=== PATIENT | female | born 1990 | race Caucasian/White ===

== ENCOUNTER 2020-05-09 10:10 | Inpatient (IN) ==
--- NOTE | 2020-05-11 14:46 | History and Physical Report ---
DATE OF ADMISSION: 05/12/2020 ADMIT DIAGNOSES: 1. Intrauterine at 40 and 0/7 weeks. 2. Breech presentation. HISTORY OF PRESENT ILLNESS: Ayse is a 30-year-old white female, 1, para 0 who on her visit at 36 weeks, was found to have a breech presentation. Options of external cephalic version and planned were discussed and she chose planned . She was originally scheduled for the , but then moved to the due to a situation with work and leave for her spouse. She notes no labor symptoms. The baby is active. No bleeding or leaking fluid. The has otherwise been uncomplicated. The father of the baby does have congenital valve disease, but this baby had a normal echo. ALLERGIES: CAT DANDER, but no known drug allergies. MEDICATIONS: vitamins and cetirizine. PAST MEDICAL HISTORY: The patient has a history of remote heart murmur and a history of asthma. SOCIAL HISTORY: She has no pertinent social history. FAMILY HISTORY: Significant for father for stroke, congenital heart disease, diabetes, hypertension, thyroid disease. Aunt with breast cancer. Paternal grandfather with diabetes, hypertension. Sister with thyroid disease and neurofibromatosis. Mother with thyroid disease. Denies any breast, uterine or ovarian cancer. PAST OBSTETRICAL AND GYNECOLOGICAL HISTORY: The patient has a history of breast lump diagnosed in 2016 with no action taken. 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 The patient denies history of sexually transmitted illnesses. FAMILY HISTORY AND GENETIC HISTORY: As noted above. PHYSICAL EXAMINATION: GENERAL: This is a well-developed, well-nourished white female in no acute distress. VITAL SIGNS: Blood pressure 120/76, weight 212.3 pounds. NECK: Supple. ABDOMEN: Soft, , nontender. EXTREMITIES: Show trace edema but are otherwise negative. LABORATORY DATA: Blood type A positive, antibodies negative, rubella immune, RPR nonreactive, hepatitis B negative, HIV negative. GTT x2 negative, chlamydia and gonorrhea negative. Declined genetic screening. Declined CF and SMA screening. ASSESSMENT: Ayse is a 30-year-old white female, 1, para 0 with a persistent breech presentation. She has declined external cephalic version and is now planned for a primary section on October 15. The risks of the procedure were discussed with the patient including the risks of anesthesia, bleeding requiring transfusion, infection, poor wound healing, damage to surrounding structures including bowel, bladder, vessels, nerves and ureters with need for further surgery, hospitalization or intervention. The other risks of surgery including the risk of heart attack, blood clot, stroke and were discussed with the patient. She expresses understanding. Questions were asked and answered. Consent was reviewed and signed and surgery is planned for the . She had a negative COVID test on 05/05/2020 and her GBS is negative.
[2020-05-12] MEDS ORDERED: CITRIC ACID/SODIUM CITRATE 15 ML UDC PO SCH (06:00)
[2020-05-12] MEDS ORDERED: ceFAZolin 2,000 MG in SYRINGE 0 ML IV SCH (06:00)
[2020-05-12] MEDS ORDERED: LACTATED RINGER'S 1,000 ML IV SCH ×2 (06:00→10:28)
[2020-05-12 06:14] LABS: Basophils # (auto) 0.02 K/uL (0-0.2); Basophils % (auto) 0.2 %; Eosinophils # (auto) 0.37 K/uL (0-0.5); Eosinophils % (auto) 2.8 %; Hematocrit (blood only) 37.7 % (37-47); Hemoglobin 12.2 g/dL (12.0-16.0); Immature Granulocytes % (auto) 0.8 %; Lymphocytes # (auto) 2.32 K/uL (1.2-3.4); Lymphocytes % (auto) 17.7 %; Mean Corpuscular Hemoglobin 27.7 pg (25-34); Mean Corpuscular Volume 85.7 fL (80-100); Mean Platelet Volume 11.5 fL (7.4-10.4); Monocytes # (auto) 0.82 K/uL (0.11-0.59); Monocytes % (auto) 6.2 %; Neutrophils # (auto) 9.51 K/uL (1.4-6.5); Neutrophils % (auto) 72.3 %; Platelet Count 210 K/uL (130-400); RDW Coefficient of Variation 13.9 % (11.5-14.5); RDW Standard Deviation 42.8 fL (36.4-46.3); White Blood Count 13.14 K/uL (4.8-10.8)
[2020-05-12 06:24] LABS: Mean Corpuscular Hgb Conc 32.4 g/dL (32-36)
[2020-05-12 06:38] LABS: Appearance Urine Cloudy (Clear); Bacteria Urine Automated 1+ (Negative); Bilirubin Urine Negative (Negative); Blood Urine Negative (Negative); Cast Urine Automated 0 /lpf (0-5); Color Urine Yellow; Epithelial Cell Urine Auto >30 /lpf (0-5); Glucose Urine UA Negative (Negative); Ketones Urine Negative (Negative); Leukocyte Esterase Urine 2+ (Negative); Nitrite Urine Negative (Negative); Protein Urine Negative (Negative); RBC Urine Automated 0-4 /hpf (0-4); Specific Gravity Urine 1.016 (1.000-1.030); Urobilinogen Urine Negative (Negative); pH Urine 6.5 (4.5-7.5)
--- NOTE | 2020-05-12 07:17 | History & Physical Bridge Note ---
Date of Service May 12, 2020 History & Physical Bridge Note I have examined the patient, reviewed the History & Physical and in the interval since the performance of the History & Physical I have noted the following changes of clinical significance: no changes noted
--- NOTE | 2020-05-12 07:25 | Anesthesiology Consultation ---
Date of Service May 12, 2020 Assessment & Plan Chart Review Chart Review: Acceptable Risk for Surgery Consults Requested none History Surgery Operation Date: 05/12/20 07:30 Proposed Procedures p Section in LD - Ailyn Waters MD, FACOG Height/Weight Height: 5 ft 10 in Weight: 95.254 kg Allergies Allergy/AdvReac Type Severity Reaction Status Date / Time No Known Drug Allergies Allergy Mild None Verified 05/12/20 06:03 cat dander Allergy Unknown SNEEZING, Verified 05/12/20 06:03 WATERY EYES Medications Home Medications Medication Instructions Recorded Confirmed Last Taken prenat.vits,сергей,aqs-[id number]-zfmkp 1 tab PO DAILY 10/05/19 05/11/20 Unknown Active Medications Generic Name Dose Route Start Last Admin Trade Name Freq PRN Reason Stop Dose Admin Lactated Ringer's 1,000 mls @ 999 mls/hr 05/12/20 06:00 05/12/20 05:58 Lr IV 06/11/20 05:59 999 mls/hr .Q1H1M SHIRA Administration NPO Date Last Intake of Fluids: 05/11/20 Time Last Intake of Fluids: 22:30 Date Last Intake of Solids: 05/11/20 Time Last Intake of Solids: 21:00 Past Medical History Medical History Breech presentation REASON FOR UPCOMING C/S Heart murmur PT DENIES History of asthma CHILD Past Family History Family History Father Stroke Congenital heart disease Diabetes Hypertension Thyroid disease Aunt Breast cancer Grandfather (Paternal) Diabetes Hypertension Sister Thyroid disease Neurofibromatosis Mother Thyroid disease Other Gallbladder disease Heart disease Past Surgical History Surgical History No pertinent past surgical history Social History Smoking Status: Never smoker Do You Dip or Chew Tobacco: No Hx Alcohol Use: No Hx Substance Use: No substance use type: does not use Physical Exam Vital Signs Last Vital Signs Temp 36.6 C 05/12/20 07:04 Pulse 73 05/12/20 06:57 Resp 20 05/12/20 07:04 BP 133/78 05/12/20 06:57 Testing Laboratory Results 05/12/20 06:00 Urine Color Yellow 05/12/20 05:49 Urine Appearance Cloudy (Clear) A 05/12/20 05:49 Urine pH 6.5 (4.5-7.5) 05/12/20 05:49 Ur Specific [place] 1.016 (1.000-1.030) 05/12/20 05:49 Urine Protein Negative (Negative) 05/12/20 05:49 Urine Glucose (UA) Negative (Negative) 05/12/20 05:49 Urine Ketones Negative (Negative) 05/12/20 05:49 Urine Nitrite Negative (Negative) 05/12/20 05:49 Ur Leukocyte Esterase 2+ (Negative) H 05/12/20 05:49 Urine WBC (Auto) 10-30 /hpf (0-5) H 05/12/20 05:49 Urine RBC (Auto) 0-4 /hpf (0-4) 05/12/20 05:49 U Hyaline Cast (Auto) 0 /lpf (0-5) 05/12/20 05:49 U Epithel Cells (Auto) >30 /lpf (0-5) H 05/12/20 05:49 Urine Bacteria (Auto) 1+ (Negative) H 05/12/20 05:49 Blood Type A Positive 05/12/20 06:00 Antibody Screen NEGATIVE 05/12/20 06:00
[2020-05-12] MEDS ORDERED: MoRPHine SULFATE PF 1 MG/ML 10 ML AMP/VIAL ONE (07:40)
[2020-05-12] MEDS ORDERED: ePHEDrine sulfate 50 MG/ML AMP ONE (07:55)
[2020-05-12] MEDS ORDERED: OXYTOCIN 10 UNITS/ML VIAL ONE (07:56)
[2020-05-12] MEDS ORDERED: diphenhydrAMINE 50 MG/ML VIAL IV PRN (08:24)
[2020-05-12] MEDS ORDERED: ONDANSETRON INJ 2 MG/ML 2 ML VIAL IV PRN (08:24)
[2020-05-12] MEDS ORDERED: HYDROmorphone INJ 0.5 MG/0.5 ML SYR IV PRN (08:24)
[2020-05-12] MEDS ORDERED: MoRPHine SULFATE PF 1 MG/ML 10 ML AMP/VIAL INT SPINAL ONE (08:24)
[2020-05-12] MEDS ORDERED: NALOXONE HCL 1 MG in SODIUM CHLORIDE 0.9% 1000ML 1,000 ML IV PRN (08:24)
[2020-05-12] MEDS ORDERED: PROMETHAZINE HCL 25 MG in SODIUM CHLORIDE 0.9% 50 ML IV PRN (08:24)
[2020-05-12] MEDS ORDERED: NALOXONE HCL 0.08 MG in SYRINGE 1.8 ML IV PRN (08:24)
[2020-05-12] MEDS ORDERED: LACTATED RINGER'S 500 ML IV PRN (08:24)
[2020-05-12] MEDS ORDERED: MoRPHine SULFATE 2 MG/ML CARP IV PRN (08:24)
[2020-05-12] MEDS ORDERED: MEPERIDINE HCL 25 MG/ML CARP/VIAL IV PRN (08:24)
[2020-05-12] MEDS ORDERED: ePHEDrine sulfate 50 MG/ML AMP IV PRN (08:24)
[2020-05-12] MEDS ORDERED: METOCLOPRAMIDE HCL 10 MG in SODIUM CHLORIDE 0.9% 50 ML IV PRN (08:24)
[2020-05-12] MEDS ORDERED: NALOXONE HCL 0.4 MG/1 ML VIAL/CARP IV PRN (08:24)
[2020-05-12] MEDS ORDERED: NO NARCOTICS OR SEDATIVES SCH (08:30)
[2020-05-12] MEDS ORDERED: DC INTRASPINAL MORPHINE SCH (08:30)
[2020-05-12] MEDS ORDERED: SODIUM CHLORIDE 0.9% 1000ML 1,000 ML IV SCH (08:30)
--- NOTE | 2020-05-12 08:42 | Operative Report ---
Post Operative Report Pre & Post Diagnosis Operation Date: 05/12/20 07:30 <No data on this case meets the specified criteria> Pre-op diagnosis-- at 39 6/7 breech presentation Post-op dx--same I identified the patient and participated in the time-out.: Yes Procedure Operation Date: 05/12/20 07:30 <No data on this case meets the specified criteria> Primary low transverse Cesearean section Surgeon Ailyn Waters MD, FACOG Developer Programmer Analyst Dr. Baeza Estimated Blood Loss 600 Findings Consistent with Post-Op Diagnosis viable female in dorcas breeck presentation. nlutx/tubes/ovs bilaterally Fluids 600cc Specimens cord gases Drains schmidt Anesthesia Type MAC Spinal Regional Complications none Disposition Accompanied Patient To Recovery: Yes Disposition: L&D Indications Patient is a with iup at 39 6/7. Breech presentation. Declines ECV. Description of Procedure The patient was taken to the operating room where she was identified verbally and by bracelet. She was seated on the operating table where a spinal anesthetic was placed by anesthesia. she was then placed in the supine position with a leftward tilt. A Schmidt catheter was placed sterilely. the patient was prepped and draped in a normal standard fashion. the anesthetic was tested and found to be adequate. A time-out was held, identifying correct patient, procedure, positioning and preoperative antibiotics. There were no concerns. A Pfannenstiel skin incision was made with a knife and taken down to the underlying layer of fascia with the knife and Bovie electrocautery. Bleeding was attended to with Bovie cautery. The fascia was incised in the midline with the knife and taken out laterally with scissors. the superior edge of the fascial incision was grasped, elevated and the underlying layer of rectus muscle was taken off bluntly and with scissors. In a similar fashion, the inferior edge of the fascial incision was grasped, elevated and the underlying layer of rectus muscle was taken off bluntly and with scissors. The muscles were bluntly in the midline. The peritoneum was entered bluntly. The incision was then stretched. The bladder blade was placed. The vesicouterine peritoneum was identified, entered with scissors and taken out laterally with scissors. The bladder flap was created digitally A hysterotomy incision was scored with a knife and the incision was stretched cephalad and caudad with the sucker machine operator's fingers. The operators hand was placed into the incision and the bottom was delivered atraumatically. Using fundal pressure, the fetus was delivered to the shoulders. the legs were reduced. the left and right arms were then swept across the body. The head was then delivered. No nuchal cord. The nose and mouth were bulb suctioned. The cord was clamped and cut and the was then handed off to the awaiting meal cooker for drying and attention. Cord blood and segment were obtained. The placenta was manually extracted. the uterus was exteriorized and cleared of all clot and debris with moistened laparotomy sponges. The hysterotomy incision was repaired in two layers, the first in a running locked layer, the second in an imbricating layer. Hemostasis was noted to be good. Posterior cul-de-sac was irrigated and cleared of all clot and debris. The hysterotomy incision was again inspected and found to be hemostatic. the uterus was reinteriorized. Hysterotomy incision was again inspected and found to be hemostatic. Rectus muscles were reapproximated with several interrupted stitches of 0 Vicryl. The fascia was then reapproximated with 0 Vicryl starting at the edges and meeting in the midline. The subcuticular tissues were copiously irrigated and bleeding was attended to with cautery. The skin was then closed with 4-0 Vicryl in a subcuticular fashion. All sponge , lap and needle counts were correct x 2. The patient was then taken to the recovery room in stable condition. I attest to the content of the Intraoperative Record and any orders documented therein. Any exceptions are noted below. OB Procedure charges OB Charges 59423 C/S
[2020-05-12 09:08] LABS: Base Excess Cord Arterial Bld -1.4 mEq/L (-9-1.8); CO2 Cord Arterial Blood 47 mmHg (39.1-73.5); HCO3 Cord Arterial Blood 25 mmol/L (19.7-28.5); PO2 Cord Arterial Blood 29 mmHg (4.1-31.7); pH Cord Arterial Blood 7.34 (7.1-7.38)
[2020-05-12 09:12] LABS: Base Excess Cord Venous Blood -1.2 mEq/L (-7.7-1.9); Cord Venous Blood HCO3 25 mmol/L (18.4-26.8); Cord Venous Blood PCO2 45 mmHg (30.4-57.2); Cord Venous Blood PO2 30 mmHg (14.1-43.3); Cord Venous Blood pH 7.35 (7.20-7.44)
--- NOTE | 2020-05-12 09:38 | Anesthesiology Progress Note ---
Date of Service May 12, 2020 Anesthesia Post Procedure Vital Signs Vital Signs: Temp Pulse Resp BP Pulse Ox 05/12/20 09:36 74 99 05/12/20 09:31 70 98 05/12/20 09:30 61 123/71 05/12/20 09:26 66 98 05/12/20 09:25 70 18 98 05/12/20 09:21 68 98 05/12/20 09:20 69 119/69 05/12/20 09:16 71 97 05/12/20 09:15 16 05/12/20 09:11 70 98 05/12/20 09:10 68 127/70 05/12/20 09:06 73 98 05/12/20 09:05 16 05/12/20 09:01 79 99 05/12/20 09:00 71 131/73 05/12/20 08:56 80 97 05/12/20 08:51 68 97 05/12/20 08:50 76 16 124/72 05/12/20 08:47 75 92 05/12/20 08:46 81 97 05/12/20 08:41 70 119/67 96 05/12/20 08:40 36.7 C 18 05/12/20 07:04 36.6 C 20 05/12/20 06:57 73 133/78 05/12/20 06:20 72 131/82 05/12/20 06:04 36.7 C 16 05/12/20 05:49 93 H 143/94 H Transfer of Care Handoff Completed per policy Notes Mental Status: alert / awake / arousable and participated in evaluation Patient Amnestic to Procedure: Yes Nausea / Vomiting: adequately controlled Pain: adequately controlled Airway Patency, RR, SpO2: stable & adequate BP & HR: stable & adequate Hydration State: stable & adequate Neuraxial Anesthesia: was administered and sensory block is resolving Anesthetic Complications: no major complications apparent
[2020-05-12] MEDS ORDERED: BENZOCAINE 20% AER SPR 82.5 GM CAN EXT PRN (10:28)
[2020-05-12] MEDS ORDERED: DIPHTHERIA/TETANUS/PERTUSSIS 0.5 ML SYR/VIAL IM ONE (10:28)
[2020-05-12] MEDS ORDERED: SENNA 8.6 MG TAB PO PRN (10:28)
[2020-05-12] MEDS ORDERED: HYDROCORTISONE ACETATE 25 MG SUPP PR PRN (10:28)
[2020-05-12] MEDS ORDERED: MAGNESIUM HYDROXIDE SUSP 30 ML UDC PO PRN (10:28)
[2020-05-12] MEDS ORDERED: SUPERCREAM 0.870% 15 GM JAR EXT PRN (10:28)
[2020-05-12] MEDS ORDERED: OXYTOCIN 20 UNITS in LACTATED RINGER'S 1,000 ML IV SCH (10:45)
[2020-05-12] MEDS: KETOROLAC 30 MG/ML VIAL IV PRN ×2 (10:52→17:03)
[2020-05-12] MEDS: SIMETHICONE 80 MG CHEW PO SCH ×3 (14:54→21:00)
[2020-05-12] MEDS: DOCUSATE SODIUM 100 MG CAP PO SCH (21:00)
[2020-05-13] MEDS: KETOROLAC 30 MG/ML VIAL IV PRN (00:19)
[2020-05-13] MEDS ORDERED: ONDANSETRON INJ 2 MG/ML 2 ML VIAL IV PRN (02:25)
[2020-05-13] MEDS ORDERED: diphenhydrAMINE Capsule 25 MG CAP PO PRN (02:25)
[2020-05-13] MEDS ORDERED: MEPERIDINE HCL 50 MG/ML CARP IV PRN (02:25)
[2020-05-13] MEDS ORDERED: KETOROLAC 30 MG/ML VIAL IV PRN (02:25)
[2020-05-13] MEDS ORDERED: PROMETHAZINE HCL 25 MG in SODIUM CHLORIDE 0.9% 50 ML IV PRN (02:25)
[2020-05-13] MEDS ORDERED: diphenhydrAMINE 50 MG/ML VIAL IV PRN (02:25)
--- NOTE | 2020-05-13 05:34 | Obstetrical Progress Note ---
Date of Service <Jose Carpenter MD - Last Filed: 05/13/20 06:35> May 13, 2020 Assessment & Plan <Jose Carpenter MD - Last Filed: 05/13/20 06:35> (1) S/P : Ayse is a 30 y/o female who is POD #1 following PLTCS for breech positioning at 40 WGA. - Feels well today. Eating well, voiding well, ambulating well. - Pain well controlled with ibuprofen 600mg Q4H PRN. - Routine post-operative care -- proceed to remove Sanford and promote OOB, ambulation, and diet progression as tolerated throughout today. - After discharge will have [address] Waters Subjective <Jose Carpenter MD - Last Filed: 05/13/20 06:35> Ayse is a 30 y/o female who is POD #1 following PLTCS for breech positioning at 40 WGA. She reports feeling well overall this morning. Some abdominal cramping with pain well managed on analgesics. Voiding via Sanford catheter, which is draining yellow urine. Has been tolerating liquids well - endorses a good appetite this AM. Not yet ambulating. Endorses passing gas. Has some persistent lochia with some improvement this morning. Currently breast feeding. Review of Systems Denies fever, chills, sweats Denies shortness of breath, difficulty breathing, chest pain, palpitations, chest pressure. Denies breast pain. Denies dysuria. Denies headache or changes in vision. Physical Exam <Jose Carpenter MD - Last Filed: 05/13/20 06:35> General: Alert, oriented. No acute distress. Cardiac: Regular rate and rhythm, no murmurs/rubs/gallops. Respiratory: Clear to auscultation bilaterally a/p, no wheezes/rales/rhonchi. No increased work of breathing. Symmetrical chest rise. No respiratory distress. Abdomen: Soft, nontender, nondistended. Bowel sounds present. Uterus: Uterine fundus firm, palpable 2 cm below umbilicus. Surgical scar clean and healing well. Lower Extremities: No lower extremity edema or swelling. No deep calf pain. Aubrey's negative bilaterally. Results & Data ([facility]) <Jose Carpenter MD - Last Filed: 05/13/20 06:35> Vital Signs (Past 12 Hours) Vital Signs Temp Pulse Resp BP Pulse Ox 05/13/20 04:09 36.9 C 76 18 111/68 96 05/13/20 01:30 18 96 05/13/20 00:29 18 99 05/13/20 00:15 36.7 C 80 18 112/71 99 05/12/20 23:30 18 99 05/12/20 22:30 18 100 05/12/20 21:30 18 100 05/12/20 20:30 18 99 05/12/20 20:25 36.9 C 73 18 122/77 99 05/12/20 19:30 18 99 05/12/20 18:30 18 97 <Ailyn Waters MD, FACOG - Last Filed: 05/13/20 07:08> Co-Signing Physician Notes Resident Physician Supervision Note: I interviewed and examined the patient. Discussed with Dr. Carpenter and agree with findings and plan as documented in the note. Any exceptions or clarifications are listed here: Doing well. Routine postop care. Documented By: Ailyn Waters MD, FACOG Resident Activity Tracking <Jose Carpenter MD - Last Filed: 05/13/20 06:35> Resident Involvement: Resident Care Provided Care Provided: Adult Hospital Medicine and OB Delivery
[2020-05-13] MEDS: oxyCODONE/ACETAMINOPHEN 5mg/325mg TAB PO PRN ×4 (06:30→20:53)
[2020-05-13] MEDS: IBUPROFEN 600 MG TAB PO PRN ×4 (06:30→20:53)
[2020-05-13 06:57] LABS: Basophils # (auto) 0.02 K/uL (0-0.2); Basophils % (auto) 0.1 %; Eosinophils # (auto) 0.26 K/uL (0-0.5); Eosinophils % (auto) 1.8 %; Hematocrit (blood only) 32.9 % (37-47); Hemoglobin 10.5 g/dL (12.0-16.0); Immature Granulocytes # (auto) 0.04 K/uL (0.00-0.02); Immature Granulocytes % (auto) 0.3 %; Lymphocytes # (auto) 1.41 K/uL (1.2-3.4); Lymphocytes % (auto) 9.5 %; Mean Corpuscular Hemoglobin 27.6 pg (25-34); Mean Corpuscular Hgb Conc 31.9 g/dL (32-36); Mean Corpuscular Volume 86.4 fL (80-100); Mean Platelet Volume 12.1 fL (7.4-10.4); Monocytes # (auto) 0.72 K/uL (0.11-0.59); Monocytes % (auto) 4.9 %; Neutrophils # (auto) 12.39 K/uL (1.4-6.5); Neutrophils % (auto) 83.4 %; Platelet Count 197 K/uL (130-400); RDW Coefficient of Variation 14.3 % (11.5-14.5); RDW Standard Deviation 44.6 fL (36.4-46.3); Red Blood Count 3.81 M/uL (4.2-5.4); White Blood Count 14.84 K/uL (4.8-10.8)
[2020-05-13] MEDS: SIMETHICONE 80 MG CHEW PO SCH ×4 (08:30→20:53)
[2020-05-13] MEDS: DOCUSATE SODIUM 100 MG CAP PO SCH ×2 (08:30→20:53)
[2020-05-13] MEDS: FERROUS SULFATE 325 MG TAB PO SCH (08:31)
[2020-05-13] MEDS: PRENATAL VITAMIN 1 TAB PO SCH (08:31)
[2020-05-13] MEDS ORDERED: Nursing to Pharmacy Communication SCH (18:15)
[2020-05-13] MEDS ORDERED: bisacodyL 5 MG TABEC PO SCH (20:00)
[2020-05-14] MEDS: IBUPROFEN 600 MG TAB PO PRN ×3 (01:46→21:38)
[2020-05-14] MEDS: oxyCODONE/ACETAMINOPHEN 5mg/325mg TAB PO PRN ×4 (01:47→21:39)
--- NOTE | 2020-05-14 05:46 | Obstetrical Progress Note ---
Date of Service <Jose Carpenter MD - Last Filed: 05/14/20 07:21> May 14, 2020 Assessment & Plan <Jose Carpenter MD - Last Filed: 05/14/20 07:21> (1) S/P : Ayse is a 30 y/o female who is POD #2 following PLTCS for breech positioning at 40 WGA. - Feels well today. Eating well, voiding well, ambulating well. - Pain well controlled with ibuprofen 600mg Q4H PRN - Routine post-operative care -- continue to promote OOB and ambulation throughout today - After discharge will have [address] Evelin Alex <Jose Carpenter MD - Last Filed: 05/14/20 07:21> Ayse is a 30 y/o female who is POD #2 following PLTCS for breech positioning at 40 WGA. She reports feeling well overall this morning. Endorses some abdominal cramping with pain well managed on analgesics. Voiding without difficulty. Tolerating meals overnight and able to ambulate some. Endorses passing gas but not yet bowel movement. Has some persistent lochia with some improvement this morning. Currently breast feeding. Review of Systems Denies fever, chills, sweats Denies shortness of breath, difficulty breathing, chest pain, palpitations, chest pressure. Denies breast pain. Denies dysuria. Denies headache or changes in vision. Physical Exam <Jose Carpenter MD - Last Filed: 05/14/20 07:21> General: Alert, oriented. No acute distress. Cardiac: Regular rate and rhythm, no murmurs/rubs/gallops. Respiratory: Clear to auscultation bilaterally a/p, no wheezes/rales/rhonchi. No increased work of breathing. Symmetrical chest rise. No respiratory distress. Abdomen: Soft, nontender, nondistended. Bowel sounds present. Uterus: Uterine fundus firm, palpable 2 cm below umbilicus. Surgical scar clean and healing well. Lower Extremities: No lower extremity edema or swelling. No deep calf pain. Aubrey's negative bilaterally. Results & Data ([facility]) <Jose Carpenter MD - Last Filed: 05/14/20 07:21> Vital Signs (Past 12 Hours) Vital Signs Temp Pulse Resp BP Pulse Ox 05/13/20 23:50 36.8 C 72 16 118/70 98 05/13/20 20:40 36.8 C 79 16 116/75 98 <Brett Fields MD - Last Filed: 05/14/20 08:03> Co-Signing Physician Notes Post day 2 from LTCS. Doing well. Routine care Resident Activity Tracking <Jose Carpenter MD - Last Filed: 05/14/20 07:21> Resident Involvement: Resident Care Provided Care Provided: Adult Hospital Medicine and OB Delivery
[2020-05-14 06:20] LABS: Hematocrit (blood only) 30.7 % (37-47); Hemoglobin 9.9 g/dL (12.0-16.0)
[2020-05-14] MEDS: DOCUSATE SODIUM 100 MG CAP PO SCH ×2 (08:00→21:38)
[2020-05-14] MEDS: PRENATAL VITAMIN 1 TAB PO SCH (08:30)
[2020-05-14] MEDS: SIMETHICONE 80 MG CHEW PO SCH ×4 (08:30→21:38)
[2020-05-14] MEDS: FERROUS SULFATE 325 MG TAB PO SCH (08:30)
[2020-05-14] MEDS ORDERED: bisacodyL 10 MG SUPP PR PRN (08:36)
[2020-05-15] MEDS: oxyCODONE/ACETAMINOPHEN 5mg/325mg TAB PO PRN ×3 (01:23→09:36)
[2020-05-15] MEDS: IBUPROFEN 600 MG TAB PO PRN ×3 (01:24→09:36)
--- NOTE | 2020-05-15 06:51 | Obstetrical Progress Note ---
Date of Service May 15, 2020 Assessment & Plan (1) S/P : Postoperative from section patient meets discharge criteria as she is ambulating well tolerating an oral diet has minimal bleeding and no extremity pain. Discharge instructions were reviewed and prescriptions were sent to her pharmacy of choice patient advised to call with any concerns and follow-up in the office discussed Subjective Ambulation: ambulating normally Voiding: no voiding problems Passing Gas:: Yes Diet Tolerance:: regular diet Lochia:: Small Feeding Type:: breast feeding Current Pain Level(1-10): 1 Physical Exam Constitutional WD/WN, vitals as above Gastrointestinal (Abdomen) normal bowel sounds, soft, nontender, no hepatosplenomegaly (Incision CDI ) Inspection/Auscultation: + high-pitched sounds Results & Data ([facility]) Vital Signs (Past 12 Hours) Vital Signs Temp Pulse Resp BP Pulse Ox 05/15/20 01:10 97.7 F 74 18 133/77 05/14/20 21:45 97.5 F L 84 16 125/71 97
[2020-05-15] MEDS: SIMETHICONE 80 MG CHEW PO SCH (08:42)
[2020-05-15] MEDS: FERROUS SULFATE 325 MG TAB PO SCH (08:43)
[2020-05-15] MEDS: DOCUSATE SODIUM 100 MG CAP PO SCH (08:43)
[2020-05-15] MEDS: PRENATAL VITAMIN 1 TAB PO SCH (08:43)
--- NOTE | 2020-05-16 14:30 | Discharge Summary (DS) ---
ADMISSION DIAGNOSES: 1. Intrauterine at 40 and 0/7 weeks. 2. Breech presentation. DISCHARGE DIAGNOSES: Same. PROCEDURES: Primary low transverse section. HISTORY OF PRESENT ILLNESS: Ayse is a 30-year-old white female, 1, para 0 who on her visit at 36 weeks, was found to have breech presentation. Options of external cephalic version and planned were discussed and she chose planned . On admission she notes no labor symptoms. The baby is active. No bleeding or leaking fluid. The has otherwise been uncomplicated. The father of the baby does have a congenital valve disease, but this baby had a normal echo. For the rest of the patient's detailed history and physical, please see her history and physical. ASSESSMENT: Ayse is a 30-year-old white female, 1, para 0 with persistent breech presentation who has declined external cephalic version. HOSPITAL COURSE: The patient was admitted and she underwent a primary low transverse section to deliver a dorcas breech female infant. Normal uterus, tubes, and ovaries were noted bilaterally. Estimated blood loss was 600 mL. Postoperative course was uncomplicated. She tolerated a regular diet, ambulated, voided after the removal of her Sanford catheter, had pain well controlled with oral pain medications and passed gas. Her discharge H and H was 9.9 and 30.7. She will return in 6 weeks for postoperative and evaluation.
== END 2020-05-15 11:55 | disposition home or self-care (01) | DRG 788 ==
LOC: EDSTATUS 10:10 → 4S1 05-12 05:41 → 4S2 05-12 11:15

== ENCOUNTER 2022-05-31 20:45 | Inpatient (IN) ==
--- NOTE | 2022-05-31 21:07 | History & Physical Report ---
Date of Service May 31, 2022 Assessment & Plan (1) Previous delivery affecting : Plan: Repeat section. The patient was counseled to the nature of the procedure including alternatives such as labor. Risks were discussed including bleeding infection injury to bowel bladder ureter vessels and even baby. The risks of internal organ injury were discussed as being higher with prior sections. Deep Vein Thrombosis, pulmonary embol us and breakdown of the incision discussed. Deep vein thrombosis pulmonary embolus hernia and failure of the incision to heal were discussed Patient verbalized understanding of this and was given ample time to ask questions Patient was scheduled for section in approximately 12 hours however she has been waylon for the last few days she was checked in the office in 1 cm most her contractions have increased since that she now is in labor and delivery and is 5 cm heart rate is category 1 patient does not wish to have a trial of labor and wishes to proceed to section obviously her request will be respected History of Present Illness Primary Care Provider: Kay Guzman MD Allergies Allergy/AdvReac Type Severity Reaction Status Date / Time cat dander Allergy Mild SNEEZING, Verified 05/31/22 15:04 WATERY EYES No Known Drug Allergies Allergy Mild None Verified 05/31/22 15:04 Home Medications Medication Instructions Recorded Confirmed Type prenat.vits,сергей,[id number] 1 tab PO QAM 10/05/19 05/31/22 History cetirizine 10 mg tablet (Zyrtec) 10 mg PO DAILY PRN seasonal 07/18/20 05/31/22 History allergies Patient History Medical History History of asthma CHILD History of cardiac murmur NOT CURRENT History of COVID-19 07/2021>SYMPTOMS RESOLVED HPV (human papilloma virus) infection 2013 Surgical History Family history of reaction to anesthesia MOTHER/SISTER>NAUSEA History of section X 1 History of dilatation and curettage Nausea and vomiting after administration of anesthetic agent Family History Father Diabetes Congenital heart disease Hypertension Thyroid disease Stroke Aunt Breast cancer Grandfather (Paternal) Diabetes Hypertension Sister Neurofibromatosis Thyroid disease Mother Thyroid disease Other Gallbladder disease Heart disease Social History (Updated 10/19/21 @ 09:56 by Jovanna Tipton) Smoking Status: Never smoker Second Hand Exposure: No; Hx Alcohol Use: No Hx Substance Use: No Preferred Language: [place] Communication Ability: Effective Visual Impairment: No Limitations Production Line Solderer Required: No Beliefs That Will Affect Care: None marital status: marital status details: Donovan Redman (27) [phone] Current Living Situation: Family Current Living Situation Comment: lives with spouse, daughter, 3 dogs. 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 Other Information That Helps Us Care for You: No Feels Safe at Home: Yes Safety Concerns: Feels Safe At This Time Assistive Devices: None Review of Systems as per Subjective / HPI Physical Exam Constitutional: WD/WN, vitals as above well developed and well nourished Respiratory: normal respiratory effort, lungs clear to auscultation normal respiratory effort Cardiovascular: RRR, no murmur, no edema Gastrointestinal (Abdomen): normal bowel sounds, soft, nontender, no hepatosplenomegaly Results & Data ([facility]) Vital Signs (Past 12 Hours) Vital Signs Temp Pulse Resp BP 05/31/22 20:56 97.9 F 96 H 18 143/89 H 05/31/22 20:54 96 H 143/89 H Coding Level of Care Code None Diagnoses Previous delivery affecting O34.219
[2022-05-31] MEDS ORDERED: LACTATED RINGER'S 1,000 ML IV SCH ×2 (21:15→23:28)
[2022-05-31 21:23] LABS: Basophils # (auto) 0.04 K/uL (0-0.2); Basophils % (auto) 0.3 %; Eosinophils # (auto) 0.13 K/uL (0-0.50); Eosinophils % (auto) 0.9 %; Hematocrit (blood only) 39.5 % (34.1-44.9); Hemoglobin 13.3 g/dl (12.0-16.0); Immature Granulocytes # (auto) 0.09 K/uL (0.00-0.02); Immature Granulocytes % (auto) 0.6 %; Lymphocytes # (auto) 1.84 K/uL (1.2-3.4); Lymphocytes % (auto) 12.1 %; Mean Corpuscular Hemoglobin 29.2 pg (25.0-34.0); Mean Corpuscular Hgb Conc 33.7 g/dL (32.0-36.0); Mean Corpuscular Volume 86.6 fL (80.0-100.0); Mean Platelet Volume 11.1 fL (9.4-12.3); Monocytes # (auto) 0.64 K/uL (0.24-0.82); Monocytes % (auto) 4.2 %; Neutrophils # (auto) 12.43 K/uL (1.4-6.5); Neutrophils % (auto) 81.9 %; Platelet Count 243 K/uL (130-400); RDW Coefficient of Variation 13.4 % (11.5-14.5); RDW Standard Deviation 42.5 fL (36.4-46.3); Red Blood Count 4.56 M/uL (3.93-5.22); White Blood Count 15.17 K/ul (4.8-10.8)
[2022-05-31] MEDS ORDERED: fentaNYL citrate 100 MCG/2 ML VIAL ONE (21:35)
[2022-05-31] MEDS ORDERED: MoRPHine SULFATE PF 1 MG/ML 10 ML AMP/VIAL ONE (21:35)
[2022-05-31] MEDS ORDERED: OXYTOCIN 10 UNITS/ML 10ML VIAL ONE ×2 (21:38)
--- NOTE | 2022-05-31 21:46 | Anesthesiology Consultation ---
Date of Service May 31, 2022 Assessment & Plan Chart Review Chart Review: Acceptable Risk for Surgery and Patient NOT seen in Pre Admission Testing Consults Requested none ASA [id number] Proposed Anesthesia Anesthesia Type: MAC Spinal Risk / Benefits Reviewed With: PT / POA / Parent / Guardian, Accepts Plan and Informed Consent Obtained History Surgery Operation Date: 05/31/22 22:00 Proposed Procedures p Section in OR - J. Henry Kitchen MD, FACOG Height/Weight Height: 5 ft 10 in Weight: 92.986 kg Allergies Allergy/AdvReac Type Severity Reaction Status Date / Time cat dander Allergy Mild SNEEZING, Verified 05/31/22 15:04 WATERY EYES No Known Drug Allergies Allergy Mild None Verified 05/31/22 15:04 Medications Home Medications Medication Instructions Recorded Confirmed Last Taken prenat.vits,сергей,jyf-owij-dkopm 1 tab PO QAM 10/05/19 05/31/22 05/30/22 cetirizine 10 mg tablet (Zyrtec) 10 mg PO DAILY PRN seasonal 07/18/20 05/31/22 05/30/22 allergies Active Medications Generic Name Dose Route Start Last Admin Trade Name Freq PRN Reason Stop Dose Admin Lactated Ringer's 1,000 mls @ 999 mls/hr 05/31/22 21:15 05/31/22 21:17 Lr IV 05/31/22 22:15 999 mls/hr .Q1H1M SHIRA Administration NPO Date Last Intake of Fluids: 05/31/22 Time Last Intake of Fluids: 18:00 Date Last Intake of Solids: 05/31/22 Time Last Intake of Solids: 17:30 Past Medical History Medical History History of asthma CHILD History of cardiac murmur NOT CURRENT History of COVID-19 07/2021>SYMPTOMS RESOLVED HPV (human papilloma virus) infection 2013 Exercise / Class Metabolic Activity II 4-5 Yardwork/Stairs/Walk up hill Past Family History Family History Father Diabetes Congenital heart disease Hypertension Thyroid disease Stroke Aunt Breast cancer Grandfather (Paternal) Diabetes Hypertension Sister Neurofibromatosis Thyroid disease Mother Thyroid disease Other Gallbladder disease Heart disease Past Surgical History Surgical History Family history of reaction to anesthesia MOTHER/SISTER>NAUSEA History of section X 1 History of dilatation and curettage Nausea and vomiting after administration of anesthetic agent Past Anesthesia History No Hx of Anesthesia Complications and No Family Hx of Anesthesia Complications History of PONV No Hx of PONV and No Hx of Motion Sickness Social History Smoking Status: Never smoker Hx Alcohol Use: No Hx Substance Use: No substance use type: does not use Review of Systems no chest pain or sob Physical Exam Vital Signs Last Vital Signs Temp 36.6 C 05/31/22 20:56 Pulse 96 H 05/31/22 20:56 Resp 18 05/31/22 20:56 BP 143/89 H 05/31/22 20:56 SpO2 99 ENMT Mouth: no TMJ abnormality Thyromental Distance: > or= 3.5 Finger Breadths Mallampati Class: II Neck normal visual inspection Respiratory normal respiratory effort Auscultation: lungs clear to auscultation bilaterally Cardiovascular Rate/Rhythm: regular rate and regular rhythm Musculoskeletal Spine: normal cervical ROM Neurologic moves all extremities Psychiatric Orientation: alert and oriented x 3 Testing Laboratory Results 05/31/22 21:15
[2022-05-31] MEDS ORDERED: MoRPHine SULFATE PF 1 MG/ML 10 ML AMP/VIAL INT SPINAL ONE ×2 (21:50→22:20)
[2022-05-31] MEDS ORDERED: ONDANSETRON INJ 2 MG/ML 2 ML VIAL IV PRN (21:50)
[2022-05-31] MEDS ORDERED: NALBUPHINE HCL INJ 10 MG/ML AMP IV PRN ×2 (21:50→22:20)
[2022-05-31] MEDS ORDERED: NALOXONE HCL 0.08 MG in SYRINGE 1.8 ML IV PRN ×2 (21:50→22:20)
[2022-05-31] MEDS ORDERED: ePHEDrine sulfate 50 MG/ML AMP IV PRN ×2 (21:50→22:20)
[2022-05-31] MEDS ORDERED: KETOROLAC 30 MG/ML VIAL IV PRN (21:50)
[2022-05-31] MEDS ORDERED: LACTATED RINGER'S 500 ML IV PRN ×2 (21:50→22:20)
[2022-05-31] MEDS ORDERED: NALOXONE HCL 1 MG in SODIUM CHLORIDE 0.9% 1000ML 1,000 ML IV PRN ×2 (21:50→22:20)
[2022-05-31] MEDS ORDERED: NALOXONE HCL 0.4 MG/1 ML VIAL/CARP IV PRN ×2 (21:50→22:20)
[2022-05-31] MEDS ORDERED: diphenhydrAMINE 50 MG/ML VIAL IV PRN ×2 (21:50→22:20)
[2022-05-31] MEDS ORDERED: HYDROmorphone INJ 0.5 MG/0.5 ML SYR IV PRN (21:50)
[2022-05-31] MEDS ORDERED: CITRIC ACID/SODIUM CITRATE 15 ML UDC PO ONE (21:51)
[2022-05-31] MEDS: CITRIC ACID/SODIUM CITRATE 15 ML UDC ONE (21:53)
[2022-05-31] MEDS ORDERED: DC INTRASPINAL MORPHINE SCH ×2 (22:00→22:30)
[2022-05-31] MEDS ORDERED: NO NARCOTICS OR SEDATIVES SCH ×2 (22:00→22:30)
[2022-05-31] MEDS ORDERED: SODIUM CHLORIDE 0.9% 1000ML 1,000 ML IV SCH ×2 (22:00→22:30)
[2022-05-31] MEDS ORDERED: ONDANSETRON INJ 2 MG/ML 2 ML VIAL ONE (22:14)
[2022-05-31] MEDS ORDERED: MEPERIDINE HCL 25 MG/ML CARP/VIAL IV PRN (22:20)
[2022-05-31 22:55] LABS: Base Excess Cord Arterial Bld 0.1 mEq/L (-9-1.8); CO2 Cord Arterial Blood 53 mmHg (39.1-73.5); HCO3 Cord Arterial Blood 27 mmol/L (19.7-28.5); Oxygen Sat Cord Arterial Blood < 60.0 % (<60); PO2 Cord Arterial Blood 20 mmHg (4.1-31.7); pH Cord Arterial Blood 7.32 (7.1-7.38)
[2022-05-31 22:56] LABS: Base Excess Cord Venous Blood -0.4 mEq/L (-7.7-1.9); Cord Venous Blood HCO3 26 mmol/L (18.4-26.8); Cord Venous Blood PCO2 50 mmHg (30.4-57.2); Cord Venous Blood PO2 24 mmHg (14.1-43.3); Cord Venous Blood pH 7.33 (7.20-7.44); O2 Saturation Cord Venous Bld < 60.0 % (<68)
--- NOTE | 2022-05-31 23:00 | Operative Report ---
PG Post Operative Report Pre & Post Diagnosis Operation Date: 05/31/22 22:00 Pre-Op Diagnosis: Repeat section. Post-Op Diagnosis: Repeat section. I identified the patient and participated in the time-out.: Yes Procedure Operation Date: 05/31/22 22:00 Actual Procedures p Section in Operating Room. - Mau Kitchen MD, FACOG Surgeon Mau Kitchen MD, FACOG Industrial [employer] Shai Lopez Estimated Blood Loss 600 Findings Consistent with Post-Op Diagnosis Specimens cord blood, gases Description of Procedure Regional anesthetic had been given by anesthesia patient was prepped and draped with a leftward tilt preoperative antibiotics had been given in appropriate timing by anesthesiology. Once the prep was allowed to fully dry timeout was performed. Pickups with teeth were used to test the incision area was found to be adequate for incision as the patient did not feel sharp pain. Scalpel was used to make a Pfannenstiel incision on the lower abdomen. We then cut through the subcutaneous fat down to the level of the anterior rectus sheath fascia this was cut in the midline and then extended laterally with the curved Romero scissors. At this stage we then placed 2 Demetris clamps on the anterior aspect of the fascia. Using the curved Romero's we are able to dissect the fascia superiorly away from the rectus muscles. Care was taken to maintain hemostasis. Demetris clamps were then placed to the inferior aspect of the anterior sheath of the fascia. Fascia was then dissected away from the rectus muscles inferiorly towards the pubic bone. A Demetris was then placed in the midline both inferiorly and superiorly. This was to allow exposure by retraction rectus muscles were in the midline with were then able to cut through the peritoneum and then enter the peritoneal cavity. Opening was enlarged to allow exposure of the peritoneal cavity both superiorly and inferiorly. Once adequate space was obtained a bladder retractor was placed to expose the lower segment Metzenbaums were used to dissect the bladder flap inferiorly away from the uterus. This was done sharply bladder retractor was then repositioned to expose the lower segment of the uterus Fresh scalpel was used to make a low transverse incision on the uterus. Uterus was then entered bluntly with the operators finger, membranes ruptured and the opening was enlarged using the operators fingers bluntly pulling superiorly and inferiorly to allow exposure. Baby was delivered by first flexion of the head elevation of the head out of the pelvis and then pressure by the executive assistant to president on the maternal abdomen. Baby's head was then delivered mouth and then nares were suctioned and then using gentle traction the baby was fully delivered. Live vigorous . Fluid was clear cord clamped and cut cord gases obtained cord blood obtained baby handed to pediatrics. Placenta removed was removed with traction we ensure the entire placenta was removed with a moist lap sponge into the uterus Should be noted that there was meconium fluid and the baby was in occiput posterior position the adnexa were normal inspection of the uterus as was the uterus itself we took great care to ensure all membranes and placenta was removed from the uterus Uterus was then exteriorized. IV Pitocin had been started by anesthesia tone improved there were no extensions the uterus was then closed using 0 Monocryl in a 2 layer closure the first layer closed in a running locked fashion from left to right and then a second closure from left to right in a running nonlocked fashion. At this stage hemostasis was excellent. Uterus was placed back in the peritoneal cavity with suction irrigation out and inspection of the uterus at this stage revealed excellent hemostasis Retractors were removed urine color was clear at this stage of the case we inspected the rectus muscles they were hemostatic fascia was closed with 0 V icryl subcutaneous fat was irrigated and closed with 3-0 Vicryl skin closed with 4-0 subcuticular Monocryl I attest to the content of the Intraoperative Record and any orders documented therein. Any exceptions are noted below. OB Procedure Charges 69952
[2022-05-31] MEDS ORDERED: HYDROCORTISONE ACETATE 25 MG SUPP PR PRN (23:28)
[2022-05-31] MEDS ORDERED: BENZOCAINE 20% AER SPR 82.5 GM CAN EXT PRN (23:28)
[2022-05-31] MEDS ORDERED: DIPHTHERIA/TETANUS/PERTUSSIS 0.5 ML SYR/VIAL IM ONE (23:28)
[2022-05-31] MEDS ORDERED: SENNA 8.6 MG TAB PO PRN (23:28)
[2022-05-31] MEDS ORDERED: CETIRIZINE HCL 10 MG TABLET PO PRN (23:28)
[2022-05-31] MEDS ORDERED: MAGNESIUM HYDROXIDE SUSP 30 ML UDC PO PRN (23:28)
--- NOTE | 2022-06-01 00:12 | Anesthesiology Progress Note ---
Date of Service June 01, 2022 Anesthesia Post Procedure Vital Signs Vital Signs: Temp Pulse Resp BP Pulse Ox 05/31/22 23:38 16 05/31/22 23:28 18 05/31/22 23:58 16 05/31/22 23:48 16 05/31/22 23:18 18 05/31/22 23:08 36.5 C 18 05/31/22 20:56 36.6 C 96 H 18 143/89 H 06/01/22 00:10 64 96 06/01/22 00:07 61 123/73 06/01/22 00:05 65 93 06/01/22 00:00 77 96 05/31/22 23:57 63 127/76 94 05/31/22 23:55 68 97 05/31/22 23:50 64 91 05/31/22 23:47 65 121/69 05/31/22 23:37 68 127/70 05/31/22 23:27 65 120/59 L 05/31/22 23:17 60 123/57 L 05/31/22 23:06 76 118/59 L 05/31/22 23:05 77 99 05/31/22 21:51 109 H 93 05/31/22 21:50 80 98 05/31/22 21:45 111 H 99 05/31/22 20:54 96 H 143/89 H Transfer of Care Handoff Completed per policy Notes Mental Status: alert / awake / arousable Patient Amnestic to Procedure: Yes Nausea / Vomiting: adequately controlled Pain: adequately controlled Airway Patency, RR, SpO2: stable & adequate BP & HR: stable & adequate Hydration State: stable & adequate Neuraxial Anesthesia: was administered and sensory block is resolving Anesthetic Complications: no major complications apparent and Pt Satisfied with anesthetic care
[2022-06-01] MEDS: ONDANSETRON INJ 2 MG/ML 2 ML VIAL IV PRN ×2 (00:28→08:48)
[2022-06-01] MEDS: OXYTOCIN 20 UNITS in LACTATED RINGER'S 1,000 ML IV SCH ×2 (00:29→08:54)
[2022-06-01] MEDS ORDERED: DROPERIDOL 5 MG/2 ML VIAL IV STA (01:33)
[2022-06-01] MEDS ORDERED: Flu Vaccine (Fluarix) 0.5mL SYR (Standard Dose) IM ONE (04:30)
[2022-06-01] MEDS: KETOROLAC 30 MG/ML VIAL IV PRN ×2 (04:50→13:10)
[2022-06-01] MEDS ORDERED: ceFAZolin 2000MG 2,000 MG/15 ML SYR IV SCH (06:00)
--- NOTE | 2022-06-01 06:08 | Obstetrical Progress Note ---
Date of Service June 01, 2022 Assessment & Plan (1) Supervision of normal intrauterine in primigravida: (2) Previous delivery affecting : Plan s/p POD#1: Vitals reviewed and WNL, Tmax 37 A+, GBS negative, Rubella immune Progress diet today as tolerated, treat pain as needed Hemoglobin 13.3 (05/30), repeat CBC pending this AM Encourage ambulation today Admission and Anticipated Discharge Date Admission Date: May 31, 2022 Supervising Physician Co-Signing Physician Notes Resident Physician Supervision Note: I was present with Dr. Locke during the history and exam. I discussed the case with the resident and agree with the findings and plan as documented in the note. Any exceptions or clarifications are listed here: [None] Documented By: Mau Kitchen MD, FACOG Subjective Ayse is a 32 y/o female who is POD #1 following delivery at 39 0/7 weeks. She had a prior with her first child. She reports feeling well overall this morning. Pain well managed on analgesics. Sanford catheter in place. Noted some nausea overnight. Currently breast feeding. Review of Systems Constitutional: no fever, no chills and no sweats Respiratory: no cough, no dyspnea and no wheezing Cardiovascular: no chest pain, no palpitations and no calf pain Genitourinary: no dysuria Neurologic: no headache(s) Physical Exam Constitutional: WD/WN, vitals as above no acute distress Respiratory: no respiratory distress Auscultation: lungs clear to auscultation bilaterally; no rales, no rhonchi and no wheezes Cardiovascular: RRR, no murmur, no edema Extremities: no calf tenderness and no edema Negative Aubrey's sign bilaterally. Gastrointestinal (Abdomen): Inspection/Auscultation: normal bowel sounds Genitourinary: Uterine fundus firm, palpable below the umbilicus. Surgical incision site clean and bandaged. Results & Data ([facility]) Vital Signs (Past 12 Hours) Vital Signs Temp Pulse Pulse Resp BP BP Pulse Ox 06/01/22 04:40 18 95 06/01/22 04:40 36.6 C 73 18 123/77 95 06/01/22 01:08 37.0 C 18 05/31/22 23:38 16 05/31/22 23:28 18 06/01/22 00:08 16 06/01/22 00:08 18 05/31/22 23:58 16 05/31/22 23:48 16 05/31/22 23:18 18 05/31/22 23:08 36.5 C 18 05/31/22 20:56 36.6 C 96 H 18 143/89 H 06/01/22 04:25 97 06/01/22 04:25 72 06/01/22 04:20 96 06/01/22 04:20 81 06/01/22 04:18 64 06/01/22 04:18 131/60 06/01/22 04:15 99 06/01/22 04:15 108 H 06/01/22 04:10 96 06/01/22 04:10 76 06/01/22 04:05 96 06/01/22 04:05 67 06/01/22 04:00 96 06/01/22 04:00 71 06/01/22 03:55 97 06/01/22 03:55 66 06/01/22 03:50 96 06/01/22 03:50 68 06/01/22 03:48 65 06/01/22 03:48 123/60 06/01/22 03:45 97 06/01/22 03:45 68 06/01/22 03:40 97 06/01/22 03:40 65 06/01/22 03:35 97 06/01/22 03:35 72 06/01/22 03:30 97 06/01/22 03:30 65 06/01/22 03:25 96 06/01/22 03:25 70 06/01/22 03:20 99 06/01/22 03:20 72 06/01/22 03:18 64 06/01/22 03:18 132/63 06/01/22 03:15 96 06/01/22 03:15 69 06/01/22 03:10 97 06/01/22 03:10 66 06/01/22 03:05 97 06/01/22 03:05 96 H 06/01/22 03:00 97 06/01/22 03:00 64 06/01/22 02:55 95 06/01/22 02:55 73 06/01/22 02:50 94 06/01/22 02:50 72 06/01/22 02:48 63 06/01/22 02:48 131/65 06/01/22 02:45 97 06/01/22 02:45 66 06/01/22 02:40 95 06/01/22 02:40 67 06/01/22 02:35 95 06/01/22 02:35 65 06/01/22 02:30 95 06/01/22 02:30 62 06/01/22 02:25 95 06/01/22 02:25 61 06/01/22 02:20 95 06/01/22 02:20 61 06/01/22 02:18 60 06/01/22 02:18 112/62 06/01/22 02:15 95 06/01/22 02:15 61 06/01/22 02:10 94 06/01/22 02:10 63 06/01/22 02:05 94 06/01/22 02:05 64 06/01/22 02:00 96 06/01/22 02:00 65 06/01/22 01:55 70 97 06/01/22 01:50 65 97 06/01/22 01:48 61 123/67 06/01/22 01:45 66 96 06/01/22 01:40 73 99 06/01/22 01:35 76 98 06/01/22 01:30 70 99 06/01/22 01:25 68 98 06/01/22 01:20 69 98 06/01/22 01:17 69 130/75 06/01/22 01:15 82 98 06/01/22 01:10 65 98 06/01/22 01:07 66 121/68 06/01/22 01:05 78 99 06/01/22 01:00 74 96 06/01/22 00:57 65 116/61 06/01/22 00:55 59 L 97 06/01/22 00:50 63 95 06/01/22 00:47 66 125/77 06/01/22 00:45 71 97 06/01/22 00:40 61 95 06/01/22 00:37 62 123/72 06/01/22 00:35 61 95 06/01/22 00:30 69 96 06/01/22 00:28 63 127/74 06/01/22 00:27 61 129/82 06/01/22 00:25 77 97 06/01/22 00:20 60 94 06/01/22 00:18 61 93 06/01/22 00:17 60 122/70 06/01/22 00:15 57 L 95 06/01/22 00:12 64 93 06/01/22 00:10 64 96 06/01/22 00:07 61 123/73 06/01/22 00:05 65 93 06/01/22 00:00 77 96 05/31/22 23:57 63 127/76 94 05/31/22 23:55 68 97 05/31/22 23:50 64 91 05/31/22 23:47 65 121/69 05/31/22 23:37 68 127/70 05/31/22 23:27 65 120/59 L 05/31/22 23:17 60 123/57 L 05/31/22 23:06 76 118/59 L 05/31/22 23:05 77 99 05/31/22 21:51 109 H 93 05/31/22 21:50 80 98 05/31/22 21:45 111 H 99 05/31/22 20:54 96 H 143/89 H O2 Del Method 06/01/22 04:40 06/01/22 04:40 Room Air 06/01/22 01:08 05/31/22 23:38 05/31/22 23:28 06/01/22 00:08 06/01/22 00:08 05/31/22 23:58 05/31/22 23:48 05/31/22 23:18 05/31/22 23:08 05/31/22 20:56 06/01/22 04:25 06/01/22 04:25 06/01/22 04:20 06/01/22 04:20 06/01/22 04:18 06/01/22 04:18 06/01/22 04:15 06/01/22 04:15 06/01/22 04:10 06/01/22 04:10 06/01/22 04:05 06/01/22 04:05 06/01/22 04:00 06/01/22 04:00 06/01/22 03:55 06/01/22 03:55 06/01/22 03:50 06/01/22 03:50 06/01/22 03:48 06/01/22 03:48 06/01/22 03:45 06/01/22 03:45 06/01/22 03:40 06/01/22 03:40 06/01/22 03:35 06/01/22 03:35 06/01/22 03:30 06/01/22 03:30 06/01/22 03:25 06/01/22 03:25 06/01/22 03:20 06/01/22 03:20 06/01/22 03:18 06/01/22 03:18 06/01/22 03:15 06/01/22 03:15 06/01/22 03:10 06/01/22 03:10 06/01/22 03:05 06/01/22 03:05 06/01/22 03:00 06/01/22 03:00 06/01/22 02:55 06/01/22 02:55 06/01/22 02:50 06/01/22 02:50 06/01/22 02:48 06/01/22 02:48 06/01/22 02:45 06/01/22 02:45 06/01/22 02:40 06/01/22 02:40 06/01/22 02:35 06/01/22 02:35 06/01/22 02:30 06/01/22 02:30 06/01/22 02:25 06/01/22 02:25 06/01/22 02:20 06/01/22 02:20 06/01/22 02:18 06/01/22 02:18 06/01/22 02:15 06/01/22 02:15 06/01/22 02:10 06/01/22 02:10 06/01/22 02:05 06/01/22 02:05 06/01/22 02:00 06/01/22 02:00 06/01/22 01:55 06/01/22 01:50 06/01/22 01:48 06/01/22 01:45 06/01/22 01:40 06/01/22 01:35 06/01/22 01:30 06/01/22 01:25 06/01/22 01:20 06/01/22 01:17 06/01/22 01:15 06/01/22 01:10 06/01/22 01:07 06/01/22 01:05 06/01/22 01:00 06/01/22 00:57 06/01/22 00:55 06/01/22 00:50 06/01/22 00:47 06/01/22 00:45 06/01/22 00:40 06/01/22 00:37 06/01/22 00:35 06/01/22 00:30 06/01/22 00:28 06/01/22 00:27 06/01/22 00:25 06/01/22 00:20 06/01/22 00:18 06/01/22 00:17 06/01/22 00:15 06/01/22 00:12 06/01/22 00:10 06/01/22 00:07 06/01/22 00:05 06/01/22 00:00 05/31/22 23:57 05/31/22 23:55 05/31/22 23:50 05/31/22 23:47 05/31/22 23:37 05/31/22 23:27 05/31/22 23:17 05/31/22 23:06 05/31/22 23:05 05/31/22 21:51 05/31/22 21:50 05/31/22 21:45 05/31/22 20:54 Resident Activity Tracking Resident Involvement: Resident Care Provided Care Provided: OB Delivery
[2022-06-01 07:36] LABS: Basophils # (auto) 0.03 K/uL (0-0.2); Basophils % (auto) 0.2 %; Eosinophils # (auto) 0.06 K/uL (0-0.50); Eosinophils % (auto) 0.4 %; Hematocrit (blood only) 35.7 % (34.1-44.9); Hemoglobin 11.8 g/dl (12.0-16.0); Immature Granulocytes % (auto) 0.6 %; Lymphocytes # (auto) 1.62 K/uL (1.2-3.4); Lymphocytes % (auto) 9.8 %; Mean Corpuscular Hemoglobin 28.9 pg (25.0-34.0); Mean Corpuscular Hgb Conc 33.1 g/dL (32.0-36.0); Mean Corpuscular Volume 87.5 fL (80.0-100.0); Mean Platelet Volume 11.5 fL (9.4-12.3); Monocytes # (auto) 0.74 K/uL (0.24-0.82); Monocytes % (auto) 4.5 %; Neutrophils # (auto) 14.05 K/uL (1.4-6.5); Neutrophils % (auto) 84.5 %; Platelet Count 202 K/uL (130-400); RDW Coefficient of Variation 13.6 % (11.5-14.5); RDW Standard Deviation 43.2 fL (36.4-46.3); Red Blood Count 4.08 M/uL (3.93-5.22)
[2022-06-01] MEDS: FERROUS SULFATE 325 MG TAB PO SCH (07:57)
[2022-06-01] MEDS: PRENATAL VITAMIN 1 TAB PO SCH (07:57)
[2022-06-01] MEDS: DOCUSATE SODIUM 100 MG CAP PO SCH ×2 (07:57→20:32)
[2022-06-01] MEDS: SIMETHICONE 80 MG CHEW PO SCH ×4 (07:58→20:32)
[2022-06-01] MEDS ORDERED: ONDANSETRON INJ 2 MG/ML 2 ML VIAL IV PRN (16:20)
[2022-06-01] MEDS ORDERED: diphenhydrAMINE 50 MG/ML VIAL IV PRN (16:20)
[2022-06-01] MEDS ORDERED: diphenhydrAMINE Capsule 25 MG CAP PO PRN (16:20)
[2022-06-01] MEDS ORDERED: KETOROLAC 30 MG/ML VIAL IV PRN (16:20)
[2022-06-01] MEDS ORDERED: PROMETHAZINE HCL 25 MG in SODIUM CHLORIDE 0.9% 50 ML IV PRN (16:20)
[2022-06-01] MEDS: IBUPROFEN 600 MG TAB PO PRN ×2 (16:48→20:32)
[2022-06-01] MEDS: oxyCODONE/ACETAMINOPHEN 5mg/325mg TAB PO PRN ×2 (16:48→20:32)
[2022-06-01] MEDS ORDERED: bisacodyL 5 MG TABEC PO SCH (20:00)
[2022-06-02] MEDS ORDERED: bisacodyL 10 MG SUPP PR PRN
[2022-06-02] MEDS: oxyCODONE/ACETAMINOPHEN 5mg/325mg TAB PO PRN ×6 (01:42→21:24)
[2022-06-02] MEDS: IBUPROFEN 600 MG TAB PO PRN ×6 (01:42→21:25)
[2022-06-02 06:26] LABS: Hematocrit (blood only) 34.9 % (34.1-44.9); Hemoglobin 11.6 g/dl (12.0-16.0)
--- NOTE | 2022-06-02 06:52 | Obstetrical Progress Note ---
Date of Service June 02, 2022 Assessment & Plan (1) Supervision of normal intrauterine in primigravida: (2) Previous delivery affecting : Plan s/p POD#2: Vitals reviewed and WNL, Tmax 37 A+, GBS negative, Rubella immune Progress diet today as tolerated, treat pain as needed Hemoglobin 13.3 (11/2), 11.6 (11/5) Encourage ambulation today Admission and Anticipated Discharge Date Admission Date: May 31, 2022 Supervising Physician Co-Signing Physician Notes Resident Physician Supervision Note: I interviewed and examined the patient. Discussed with Dr. Ashby and agree with findings and plan as documented in the note. Any exceptions or clarifications are listed here: [None] Documented By: Karely Nicholson MD, FACOG Subjective Ayse is a 32 y/o female who is POD #1 following delivery at 39 0/7 weeks. She had a prior with her first child. She reports feeling well overall this morning. Pain well managed on analgesics. Sanford catheter removed and voiding without issue. Able to ambulate some, has not eaten any full meals yet but plans to for breakfast this morning. Endorses passing gas. Notes that vaginal bleeding is largely unchanged from yesterday.. Currently breast feeding. Review of Systems Constitutional: no fever, no chills and no sweats Respiratory: no cough, no dyspnea and no wheezing Cardiovascular: no chest pain, no palpitations and no calf pain Genitourinary: no dysuria Neurologic: no headache(s) Physical Exam Constitutional: WD/WN, vitals as above no acute distress Respiratory: no respiratory distress Auscultation: lungs clear to auscultation bilaterally; no rales, no rhonchi and no wheezes Cardiovascular: RRR, no murmur, no edema Extremities: no calf tenderness and no edema Negative Aubrey's sign bilaterally. Genitourinary: Uterine fundus firm, palpable below the umbilicus. Surgical incision site bandaged. Results & Data ([facility]) Vital Signs (Past 12 Hours) Vital Signs Temp Pulse Pulse Resp BP Pulse Ox O2 Del Method 06/01/22 23:15 37.0 C 72 18 119/73 98 Room Air 06/01/22 19:25 Room Air 06/01/22 19:25 36.7 C 81 16 114/72 97 Room Air Resident Activity Tracking Resident Involvement: Resident Care Provided Care Provided: OB Delivery
[2022-06-02] MEDS: SIMETHICONE 80 MG CHEW PO SCH ×4 (09:34→21:24)
[2022-06-02] MEDS: FERROUS SULFATE 325 MG TAB PO SCH (09:34)
[2022-06-02] MEDS: DOCUSATE SODIUM 100 MG CAP PO SCH ×2 (09:34→21:24)
[2022-06-02] MEDS: PRENATAL VITAMIN 1 TAB PO SCH (09:34)
[2022-06-03] MEDS: oxyCODONE/ACETAMINOPHEN 5mg/325mg TAB PO PRN ×2 (02:05→07:40)
[2022-06-03] MEDS: IBUPROFEN 600 MG TAB PO PRN ×2 (02:06→07:39)
[2022-06-03] MEDS: FERROUS SULFATE 325 MG TAB PO SCH (07:38)
[2022-06-03] MEDS: PRENATAL VITAMIN 1 TAB PO SCH (07:38)
[2022-06-03] MEDS: DOCUSATE SODIUM 100 MG CAP PO SCH (07:38)
[2022-06-03] MEDS: SIMETHICONE 80 MG CHEW PO SCH (09:27)
--- NOTE | 2022-06-03 10:06 | Obstetrical Progress Note ---
Date of Service June 03, 2022 Assessment & Plan (1) Encounter for care and examination after delivery: Plan stable, desires dc home. instructions reviewed. f/u 6 wk pp check. reviewed labs. rh pos, ri, . Subjective Ambulation: ambulating normally Voiding: no voiding problems Passing Gas:: Yes Diet Tolerance:: regular diet Lochia:: Small Feeding Type:: breast feeding denies pain issues Physical Exam Constitutional WD/WN, vitals as above Respiratory normal respiratory effort, lungs clear to auscultation Cardiovascular Rate/Rhythm: regular rate and regular rhythm Gastrointestinal (Abdomen) Inspection/Auscultation: abdomen normal to inspection and + abdominal surgical incision (c/d/i with steris) Percussion/Palpation: abdomen soft Fundus firm 2cm down Musculoskeletal nt calves tr edema Neurologic grossly normal Psychiatric A+Ox3, euthymic affect Results & Data ([facility]) Vital Signs (Past 12 Hours) Vital Signs Temp Pulse Resp BP Pulse Ox O2 Del Method 06/03/22 07:53 97.5 F L 75 20 109/64 97 Room Air
--- NOTE | 2022-06-05 08:34 | Discharge Summary ---
Date of Service June 05, 2022 Admission Exam (Per Admitting) Constitutional WD/WN, vitals as above well developed and well nourished Respiratory normal respiratory effort, lungs clear to auscultation normal respiratory effort Cardiovascular RRR, no murmur, no edema Gastrointestinal (Abdomen) normal bowel sounds, soft, nontender, no hepatosplenomegaly Discharge Data Consultations 05/31/22 21:03 Consult Anesthesiology Stat Procedures Performed Operation Date: 05/31/22 22:00 Actual Procedures p Section in Operating Room. - Mau Kitchen MD, [facility] Course (1) Encounter for care and examination after delivery: Plan stable, desires dc home. instructions reviewed. f/u 6 wk pp check. reviewed labs. rh pos, ri, . Coding Level of Care Code None Diagnoses Encounter for care and examination after delivery Z39.2
== END 2022-06-03 11:00 | disposition home or self-care (01) | DRG 788 ==
LOC: OPB 20:45 → 4S1 20:46 → 4E2 06-01 04:48

== ENCOUNTER 2025-02-06 04:21 | Inpatient (IN) ==
--- NOTE | 2025-02-06 04:37 | History & Physical Report ---
Date of Service February 06, 2025 Assessment & Plan (1) Previous delivery affecting : Plan: Repeat section. The patient was counseled to the nature of the procedure including alternatives such as labor. Risks were discussed including bleeding infection injury to bowel bladder ureter vessels and even baby. The risks of internal organ injury were discussed as being higher with prior sections. Deep Vein Thrombosis, pulmonary embolus and breakdown of the incision discussed. Deep vein thrombosis pulmonary embolus hernia and failure of the incision to heal were discussed Patient verbalized understanding of this and was given ample time to ask questions Note I reviewed her chart carefully she does not wish a tubal ligation she had discussed this previously I confirmed this with her today There was some concern earlier in the for possible placenta accreta however on reviewing the chart and the MRI done this does not seem to be the case while there was a small fluid collection behind the placenta the MRI was negative for this History of Present Illness Primary Care Provider: Kay Guzman MD Current Estimate 02/12/25 LMP (Certain) 39w 0d LMP: 05/08/24 : 3 Full term: 2 Premature: 0 Total Number of Induced Abortions: 0 Total Number of Spontaneous Abortions: 0 Ectopics: 0 Multiple births: 0 Number of Living Children: 2 and Delivery Plans Previous x2; breech as of 01/22 C/S WITH TUBAL SCHEDULED FOR 02/05/[address] RODNEY AND DR. MCCLENDON ASSIST C/S WITH TUBAL RESCHEDULED FOR 02/08/[address] BUSTILLO AND DR[address] RUIZ ASSIST Anterior placenta appears abnl Area where placenta appears to breach into myometrium, with fluid collection behind - ?focal accreta M consult, (11/09/24 @ [facility] [place]) MRI completed 11/27 - on chart and sent to Dr. Bustillo for review Patient's father-congenital heart defect Echo~22-24 weeks [facility] [place]- 10/20/24-->WNL Rubella equivocal * offer vaccine Allergies Allergy/AdvReac Type Severity Reaction Status Date / Time cat dander Allergy Mild Sneezing, Verified 02/05/25 09:12 watery eyes No Known Drug Allergies Allergy Mild None Verified 02/05/25 09:12 Home Medications Medication Instructions Recorded Confirmed Type prenat.vits,сергей,[id number]-[id number]-[id number] 1 tab PO QAM 10/05/19 02/05/25 History cetirizine 10 mg tablet (Zyrtec) 10 mg PO DAILY PRN seasonal 07/18/20 02/05/25 History allergies hydrocortisone 2.5 % topical cream 1 applic [place] DAILY PRN hemorrhoids 01/27/25 02/05/25 Rx with perineal applicator #30 grams (Procto-Med HC) Patient History Medical History History of anxiety after 1st History of HPV infection (2013) Hx of motion sickness History of cardiac murmur "As teenager" [facility] Cardiology visit 10/20/24: Evaluated during for family hx of bicuspid aortic valve. Unremarkable echo, "I do not see any contraindication from a cardiac standpoint to her delivering at [facility] as she is currently planning." "Ms. Redman is known to have a normal aortic valve.." History of COVID-19 07/2021- symptoms resolved History of asthma As child, no current issues Surgical History PONV (postoperative nausea and vomiting) S/P rhinoplasty Deviated septum Family history of reaction to anesthesia Mother/sister- nausea Nausea and vomiting after administration of anesthetic agent History of dilatation and curettage History of section x2 Family History Father Diabetes Congenital heart disease Hypertension Thyroid disease Stroke Aunt Breast cancer Grandfather (Paternal) Diabetes Hypertension Sister Neurofibromatosis Thyroid disease Mother Thyroid disease Other Gallbladder disease Heart disease Social History Smoking Status: Never smoker Second Hand Exposure: No; Do You Dip or Chew Tobacco: No; Hx Alcohol Use: No Hx Substance Use: No Preferred Language: Mosotho Communication Ability: Effective Visual Impairment: No Limitations Concrete Conveyor Operator Required: No Beliefs That Will Affect Care: None marital status: marital status details: Donovan Redman (30) [phone] Current Living Situation: Spouse and Family Current Living Situation Comment: lives with spouse, 2 children, dogs. 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
[2025-02-06] MEDS ORDERED: SODIUM CHLORIDE 0.9% 100 ML IV PRN (04:41)
[2025-02-06] MEDS: LACTATED RINGER'S 1,000 ML IV SCH (04:50)
[2025-02-06] MEDS: AZITHROMYCIN 500 MG/255 ML BAG IV ONE (05:02)
[2025-02-06] MEDS: CITRIC ACID/SODIUM CITRATE 15 ML UDC PO ONE (05:06)
[2025-02-06] MEDS: ACETAMINOPHEN 500 MG TAB PO ONE (05:06)
[2025-02-06 05:09] LABS: Hematocrit (blood only) 40.0 % (37.0-47.0); Hemoglobin 13.4 g/dl (12.0-16.0); Mean Corpuscular Hemoglobin 30.3 pg (25.0-34.0); Mean Corpuscular Volume 90.5 fL (80.0-100.0); Platelet Count 190 K/uL (130-400); RDW Standard Deviation 41.9 fL (36.4-46.3); Red Blood Count 4.42 M/uL (4.20-5.40); White Blood Count 14.96 K/ul (4.8-10.8)
[2025-02-06] MEDS ORDERED: MoRPHine SULFATE PF 1 MG/ML 10 ML AMP/VIAL ONE (05:33)
[2025-02-06] MEDS ORDERED: OXYTOCIN 10 UNITS/ML VIAL ONE (05:54)
[2025-02-06] MEDS ORDERED: ONDANSETRON INJ 2 MG/ML 2 ML VIAL ONE (06:14)
[2025-02-06] MEDS ORDERED: PHENYLEPHRINE HCL 25 MG/250 ML NSS IV ONE (06:14)
[2025-02-06] MEDS ORDERED: BENZOCAINE 20% SPRY 85 APPLN/85 GM CAN EXT PRN (06:35)
[2025-02-06] MEDS ORDERED: SENNA 8.6 MG TAB PO PRN (06:35)
[2025-02-06] MEDS ORDERED: MAGNESIUM HYDROXIDE SUSP 30 ML UDC PO PRN (06:35)
[2025-02-06] MEDS ORDERED: CALCIUM CARBONATE 500 MG CHEWABLE TAB PO PRN (06:35)
[2025-02-06] MEDS ORDERED: HYDROCORTISONE ACETATE 25 MG SUPP PR PRN (06:35)
--- NOTE | 2025-02-06 06:35 | Operative Report ---
Post Operative Report Pre & Post Diagnosis Operation Date: 02/06/25 05:10 Pre-Op Diagnosis: Previous delivery affecting : Repeat section. I identified the patient and participated in the time-out.: Yes Procedure Operation Date: 02/06/25 05:10 Actual Procedures p Section in LD of a [facility]@0601(Bilateral) - Mau Kitchen MD, FACOG Surgeon Mau Kitchen MD, FACOG Steel Grinder Nicho Marcelino RN Quantitative Blood Loss (QBL) 239 Findings Consistent with Post-Op Diagnosis Specimens cord blood Description of Procedure Regional anesthetic had been given by anesthesia patient was prepped and draped with a leftward tilt preoperative antibiotics had been given in appropriate timing by anesthesiology. Once the prep was allowed to fully dry timeout was performed. Pickups with teeth were used to test the incision area was found to be adequate for incision as the patient did not feel sharp pain. Scalpel was used to make a Pfannenstiel incision on the lower abdomen. We then cut through the subcutaneous fat down to the level of the anterior rectus sheath fascia this was cut in the midline and then extended laterally with the curved Romero scissors. At this stage we then placed 2 Demetris clamps on the anterior aspect of the fascia. Using the curved Romero's we are able to dissect the fascia superiorly away from the rectus muscles. Care was taken to maintain hemostasis. Demetris clamps were then placed to the inferior aspect of the anterior sheath of the fascia. Fascia was then dissected away from the rectus muscles inferiorly towards the pubic bone. A Demetris was then placed in the midline both inferiorly and superiorly. This was to allow exposure by retraction rectus muscles were in the midline with were then able to cut through the peritoneum and then enter the peritoneal cavity. Opening was enlarged to allow exposure of the peritoneal cavity both superiorly and inferiorly. Once adequate space was obtained a bladder retractor was placed to expose the lower segment Metzenbaums were used to dissect the bladder flap inferiorly away from the uterus. This was done sharply bladder retractor was then repositioned to expose the lower segment of the uterus. Note there were dense bladder flap adhesions but these were carefully dissected away with Metzenbaums Fresh scalpel was used to make a low transverse incision on the uterus. Uterus was then entered bluntly with the operators finger, membranes ruptured and the opening was enlarged using the operators fingers bluntly pulling superiorly and inferiorly to allow exposure. Baby was delivered by first flexion of the head elevation of the head out of the pelvis and then pressure by the education assistant on the maternal abdomen. Baby's head was then delivered mouth and then nares were suctioned and then using gentle traction the baby was fully delivered. Live vigorous infant. Fluid was clear cord clamped and cut cord gases obtained cord blood obtained baby handed to pediatrics. Placenta removed was removed with traction we ensure the entire placenta was removed with a moist lap sponge into the uterus Uterus was then exteriorized. IV Pitocin had been started by anesthesia tone improved there were no extensions the uterus was then closed using 0 Monocryl in a 2 layer closure the first layer closed in a running locked fashion from left to right and then a second closure from left to right in a running nonlocked fashion. At this stage hemostasis was excellent. Uterus was placed back in the peritoneal cavity with suction irrigation out and inspection of the uterus at this stage revealed excellent hemostasis Retractors were removed urine color was clear at this stage of the case we inspected the rectus muscles they were hemostatic fascia was closed with 0 Vicryl subcutaneous fat was irrigated and closed with 3-0 Vicryl skin closed with 4-0 subcuticular Monocryl Uterus and adnexa were normal and should be noted the placenta came out easily there was no evidence of placenta accreta the patient had declined tubal thus was not done I attest to the content of the Intraoperative Record and any orders documented therein. Any exceptions are noted below. OB Procedure Charges 70527
[2025-02-06] MEDS ORDERED: MEPERIDINE HCL 25 MG/ML CARP/VIAL IV PRN (06:44)
[2025-02-06] MEDS ORDERED: diphenhydrAMINE 50 MG/ML VIAL IV PRN (06:44)
[2025-02-06] MEDS ORDERED: LACTATED RINGER'S 500 ML IV PRN (06:44)
[2025-02-06] MEDS ORDERED: NALBUPHINE HCL INJ 10 MG/ML AMP IV PRN (06:44)
[2025-02-06] MEDS ORDERED: MoRPHine SULFATE 2 MG/ML CARP IV PRN (06:44)
[2025-02-06] MEDS ORDERED: NALOXONE HCL 0.08 MG in SYRINGE 1.8 ML IV PRN (06:44)
[2025-02-06] MEDS ORDERED: HYDROmorphone INJ 0.5 MG/0.5 ML SYR IV PRN (06:44)
[2025-02-06] MEDS ORDERED: NALOXONE HCL 0.4 MG/1 ML VIAL/CARP IV PRN (06:44)
[2025-02-06] MEDS ORDERED: NALOXONE HCL 1 MG in SODIUM CHLORIDE 0.9% 1,000 ML IV PRN (06:44)
--- NOTE | 2025-02-06 06:44 | Anesthesiology Consultation ---
Date of Service February 06, 2025 Assessment & Plan Chart Review Chart Review: Acceptable Risk for Surgery and Patient NOT seen in Pre Admission Testing Consults Requested none ASA ASA2E Proposed Anesthesia Anesthesia Type: Spinal (+intrathecal narcotics) Risk / Benefits Reviewed With: PT / POA / Parent / Guardian, Accepts Plan and Informed Consent Obtained History Surgery Operation Date: 02/06/25 05:10 Proposed Procedures p Section in LD - J. Henry Kitchen MD, FACOG Height/Weight Height: 5 ft 10 in Weight: 97.522 kg Allergies Allergy/AdvReac Type Severity Reaction Status Date / Time cat dander Allergy Mild Sneezing, Verified 02/05/25 09:12 watery eyes No Known Drug Allergies Allergy Mild None Verified 02/05/25 09:12 Medications Home Medications Medication Instructions Recorded Confirmed Last Taken prenat.vits,сергей,zat-ovwe-ypzds 1 tab PO QAM 10/05/19 02/06/25 02/05/25 22:30 cetirizine 10 mg tablet (Zyrtec) 10 mg PO DAILY PRN seasonal 07/18/20 02/06/25 02/05/25 22:00 allergies hydrocortisone 2.5 % topical cream 1 applic [place] DAILY PRN hemorrhoids 01/27/25 02/06/25 02/05/25 07:00 with perineal applicator #30 grams (Procto-Med HC) NPO Date Last Intake of Fluids: 02/06/25 Time Last Intake of Fluids: 03:30 Date Last Intake of Solids: 02/05/25 Time Last Intake of Solids: 21:30 Past Medical History Medical History History of anxiety after 1st History of HPV infection (2013) Hx of motion sickness History of cardiac murmur "As teenager" [facility] Cardiology visit 10/20/24: Evaluated during for family hx of bicuspid aortic valve. Unremarkable echo, "I do not see any contraindication from a cardiac standpoint to her delivering at [facility] as she is currently planning." "Ms. Redman is known to have a normal aortic valve.." History of COVID-19 07/2021- symptoms resolved History of asthma As child, no current issues Exercise / Class Metabolic Activity II 4-5 Yardwork/Stairs/Walk up hill Past Family History Family History Father Diabetes Congenital heart disease Hypertension Thyroid disease Stroke Aunt Breast cancer Grandfather (Paternal) Diabetes Hypertension Sister Neurofibromatosis Thyroid disease Mother Thyroid disease Other Gallbladder disease Heart disease Past Surgical History Surgical History PONV (postoperative nausea and vomiting) S/P rhinoplasty Deviated septum Family history of reaction to anesthesia Mother/sister- nausea Nausea and vomiting after administration of anesthetic agent History of dilatation and curettage History of section x2 Past Anesthesia History No Hx of Anesthesia Complications and No Family Hx of Anesthesia Complications History of PONV No Hx of PONV and No Hx of Motion Sickness Social History Smoking Status: Never smoker Do You Dip or Chew Tobacco: No Hx Alcohol Use: No Hx Substance Use: No substance use type: does not use Physical Exam Vital Signs Last Vital Signs Temp 36.7 C 02/06/25 04:40 Pulse 73 02/06/25 06:41 Resp 16 02/06/25 04:41 BP 119/65 02/06/25 06:39 Pulse Ox 100 02/06/25 06:41 ENMT Mouth: no dentition abnormality Thyromental Distance: > or= 3.5 Finger Breadths Mallampati Class: II Neck normal visual inspection Respiratory normal respiratory effort Auscultation: lungs clear to auscultation bilaterally Cardiovascular Rate/Rhythm: regular rate and regular rhythm Psychiatric Orientation: alert Testing Laboratory Results 02/06/25 04:41 Blood Type A Positive 02/06/25 04:43 Antibody Screen NEGATIVE 02/06/25 04:43
[2025-02-06] MEDS ORDERED: NO NARCOTICS OR SEDATIVES SCH (06:45)
[2025-02-06] MEDS ORDERED: DC INTRASPINAL MORPHINE SCH (06:45)
--- NOTE | 2025-02-06 06:46 | Anesthesiology Progress Note ---
Date of Service February 06, 2025 Anesthesia Post Procedure Vital Signs Vital Signs: Temp Pulse Resp BP Pulse Ox 02/06/25 06:41 73 100 02/06/25 06:39 75 119/65 02/06/25 04:42 86 125/75 02/06/25 04:41 16 02/06/25 04:40 16 02/06/25 04:40 36.7 C 16 Transfer of Care Handoff Completed per policy Notes Mental Status: alert / awake / arousable Nausea / Vomiting: adequately controlled Pain: adequately controlled Airway Patency, RR, SpO2: stable & adequate BP & HR: stable & adequate Hydration State: stable & adequate Neuraxial Anesthesia: was administered and sensory block is resolving Anesthetic Complications: no major complications apparent and Pt Satisfied with anesthetic care
[2025-02-06] MEDS: DIPHTHER/TETAN/PERTUS Vaccine (Tdap, Adol/Adult) 0.5mL IM ONE (07:02)
[2025-02-06] MEDS: MoRPHine SULFATE PF 1 MG/ML 10 ML AMP/VIAL INT SPINAL ONE (07:02)
[2025-02-06] MEDS: KETOROLAC 30 MG/ML VIAL IV SCH (07:08)
[2025-02-06] MEDS: PRENATAL VITAMIN 1 TAB PO SCH (07:11)
[2025-02-06] MEDS: FERROUS SULFATE 325 MG TAB PO SCH (07:11)
[2025-02-06] MEDS: DOCUSATE SODIUM 100 MG CAP PO SCH (07:11)
[2025-02-06] MEDS: SIMETHICONE 80 MG CHEW PO SCH (07:22)
[2025-02-06] MEDS: ONDANSETRON INJ 2 MG/ML 2 ML VIAL IV PRN (10:40)
[2025-02-06] MEDS: PROMETHAZINE 6.25 MG/50.25 ML BAG IV PRN (12:59)
[2025-02-06] MEDS: ACETAMINOPHEN 325 MG TAB PO SCH (12:59)
[2025-02-06] MEDS ORDERED: LACTATED RINGER'S 1,000 ML IV SCH (15:00)
[2025-02-06] MEDS: OXYTOCIN 20 UNITS/LR 1,002 ML IV SCH (16:01)
[2025-02-07] MEDS ORDERED: PROMETHAZINE 12.5 MG/50.5 ML BAG IV PRN (00:44)
[2025-02-07] MEDS ORDERED: ONDANSETRON INJ 2 MG/ML 2 ML VIAL IV PRN (00:44)
[2025-02-07] MEDS ORDERED: HYDROmorphone INJ 0.5 MG/0.5 ML SYR IV PRN (00:44)
[2025-02-07] MEDS ORDERED: diphenhydrAMINE Capsule 25 MG CAP PO PRN (00:44)
[2025-02-07] MEDS ORDERED: diphenhydrAMINE 50 MG/ML VIAL IV PRN (00:44)
[2025-02-07] MEDS ORDERED: KETOROLAC 30 MG/ML VIAL IV PRN (06:32)
[2025-02-07] MEDS: IBUPROFEN 600 MG TAB PO SCH (06:32)
[2025-02-07 06:37] LABS: Hematocrit (blood only) 39.4 % (37.0-47.0); Hemoglobin 13.0 g/dl (12.0-16.0); Immature Granulocytes # (auto) 0.09 K/uL (0.01-0.20); Immature Granulocytes % (auto) 0.7 %; Mean Corpuscular Hemoglobin 30.4 pg (25.0-34.0); Mean Corpuscular Volume 92.1 fL (80.0-100.0); Platelet Count 170 K/uL (130-400); RDW Standard Deviation 43.6 fL (36.4-46.3); Red Blood Count 4.28 M/uL (4.20-5.40); White Blood Count 12.54 K/ul (4.8-10.8)
--- NOTE | 2025-02-07 08:42 | Obstetrical Progress Note ---
Date of Service February 07, 2025 Assessment & Plan (1) Encounter for care and examination after delivery: Day 1 status post repeat variant section. Patient doing well we will continue with routine care Subjective Ambulation: ambulating normally Voiding: no voiding problems Passing Gas:: Yes Diet Tolerance:: regular diet Lochia:: Moderate Physical Exam Constitutional WD/WN, vitals as above Respiratory normal respiratory effort; no respiratory distress and no labored breathing Cardiovascular Extremities: no calf tenderness Gastrointestinal (Abdomen) Inspection/Auscultation: abdomen normal to inspection; abdomen not distended Percussion/Palpation: abdomen soft; abdomen nontender, no guarding and abdomen not rigid Incision clean, dry and intact Genitourinary OB Exam Abdomen: + fundal height Fundus: + firm and + relation to umbilicus (Below); not tender or not boggy Results & Data Vital Signs (Past 12 Hours) Vital Signs Temp Pulse Resp BP Pulse Ox O2 Del Method 02/07/25 02:59 36.6 C 61 16 107/70 96 Room Air 02/07/25 00:00 16 99 02/06/25 23:45 16 98 02/06/25 23:13 37 C 66 16 116/74 100 Room Air 02/06/25 22:30 16 98 02/06/25 21:10 16 98
[2025-02-07] MEDS: LACTATED RINGER'S 1,000 ML IV SCH (19:24)
[2025-02-07] MEDS: SODIUM CHLORIDE 0.9% 1,000 ML IV SCH (19:25)
--- NOTE | 2025-02-08 06:00 | Obstetrical Progress Note ---
Date of Service <Sha Mancini MD - Last Filed: 02/08/25 07:01> February 08, 2025 Assessment & Plan <Sha Mancini MD - Last Filed: 02/08/25 07:01> (1) care and examination: 35yo post-op day 2 s/p section Fells well today. Vital signs stable Continue post- care Encourage ambulation and Pain controlled with Ibuprofen, Tylenol Vitals and Hgb stable Rubella vaccine discussed, pt prefers to wait until after d/c <Brett Fields MD - Last Filed: 02/08/25 07:53> (1) care and examination: Subjective <Sha Mancini MD - Last Filed: 02/08/25 07:01> 35yo post-op day 2 s/p section Ambulation: Ambulating normally Voiding: No voiding problems Passing Gas:: Yes Diet Tolerance:: regular diet Lochia:: Small Feeding Type:: Current Pain Level: 5/10 controlled with Tylenol, Ibuprofen Resting comfortably this AM in NAD. Denies COSTA, SOB, N/V/D, LE pain/swelling. (+) chest discomfort attributed to gas by pt Physical Exam <Sha Mancini MD - Last Filed: 02/08/25 07:01> General: patient resting comfortably, NAD, non-toxic in appearance, answers questions appropriately Skin: warm, dry, intact Heart: S1/S2 heard, regular, no m/r/g Lungs: equal air entry bilaterally, no rales/rhonchi/wheezes Abd: Normoactive BS, soft, NT/ND, uterine fundus firm below umbilicus, incision clean, dry, and intact Ext: warm, no clubbing/cyanosis or edema, Aubrey's neg Neuro: nonfocal, patient AAOx4, speech intact, no facial droop, moving all extremities on command Results & Data <Sha Mancini MD - Last Filed: 02/08/25 07:01> Vital Signs (Past 12 Hours) Vital Signs Temp Pulse Resp BP Pulse Ox O2 Del Method 02/07/25 23:01 36.7 C 68 16 103/62 97 Room Air 02/07/25 20:10 37.0 C 80 18 127/78 Room Air Supervising Physician <Brett Fields MD - Last Filed: 02/08/25 07:53> Co-Signing Physician Notes Patient seen with resident and agree with the above findings and plan. Stable for discharge today Resident Activity Tracking <Sha Mancini MD - Last Filed: 02/08/25 07:01> Resident Involvement: Resident Care Provided Care Provided: OB Delivery
[2025-02-08] MEDS: IBUPROFEN 600 MG TAB PO PRN (06:22)
[2025-02-08 07:24] LABS: Hematocrit (blood only) 39.0 % (37.0-47.0); Hemoglobin 13.0 g/dl (12.0-16.0)
[2025-02-08] MEDS: ACETAMINOPHEN 325 MG TAB PO PRN (12:30)
[2025-02-08 21:33] VITALS: O2SAT 98
--- NOTE | 2025-02-09 07:09 | Obstetrical Progress Note ---
Date of Service <Sha Mancini MD - Last Filed: 02/09/25 08:10> February 09, 2025 Assessment & Plan <Sha Mancini MD - Last Filed: 02/09/25 08:10> (1) care and examination: 35yo post-op day 3 s/p section Fells well today. Continue post- care Encourage ambulation and Pain controlled with Ibuprofen, Tylenol, and Oxycodone Vitals and Hgb stable Rubella equivocal. MMR vaccine discussed 02/08/25, pt prefers to wait until after d/c D/c home. Follow with OB provider in 6 weeks D/c instructions discussed <Denisse Bustillo MD, FACOG - Last Filed: 02/09/25 08:18> (1) care and examination: Subjective <Sha Mancini MD - Last Filed: 02/09/25 08:10> 35yo post-op day 3 s/p section Ambulation: Ambulating normally Voiding: No voiding problems Passing Gas:: Yes Diet Tolerance:: regular diet Lochia:: Small Feeding Type:: Current Pain Level: 5/10 controlled with Ibuprofen, Tylenol, and Oxycodone Resting comfortably this AM in NAD. Denies COSTA, SOB, N/V/D, LE pain/swelling. Physical Exam <Sha Mancini MD - Last Filed: 02/09/25 08:10> General: patient resting comfortably, NAD, non-toxic in appearance, answers questions appropriately Skin: warm, dry, intact Heart: S1/S2 heard, regular, no m/r/g Lungs: equal air entry bilaterally, no rales/rhonchi/wheezes Abd: Normoactive BS, soft, NT/ND, uterine fundus firm at umbilicus, incision clean, dry, and intact Ext: warm, no clubbing/cyanosis or edema, Aubrey's neg Neuro: nonfocal, patient AAOx4, speech intact, no facial droop, moving all extremities on command Results & Data <Sha Mancini MD - Last Filed: 02/09/25 08:10> Vital Signs (Past 12 Hours) Vital Signs Temp Pulse Resp BP Pulse Ox O2 Del Method 02/08/25 23:35 36.8 C 66 16 117/73 98 Room Air 02/08/25 19:50 36.8 C 82 18 117/72 98 Room Air Supervising Physician <Denisse Bustillo MD, FACOG - Last Filed: 02/09/25 08:18> Co-Signing Physician Notes Resident Physician Supervision Note: I was present with Dr. Mancini during the history and exam. I discussed the case with the resident and agree with the findings and plan as documented in the note. Any exceptions or clarifications are listed here: stable doing well. eating, voiding, ambulating. good pain control. no bleeding issues. breast feeding. abd soft ff 2 down nt, incision c/d/i with steris. ext nt calves. pod #3s/p c/s ready for dc home, instructions reviewed. f/u 6 wk pp check. rh pos, mmr ordered, pt defers. checked on papdmp and no issues. Documented By: Denisse Bustillo MD, FACOG Resident Activity Tracking <Sha Mancini MD - Last Filed: 02/09/25 08:10> Resident Involvement: Resident Care Provided Care Provided: OB Delivery (pp)
[2025-02-09 07:25] VITALS: BP 124/79; RESP 18; TEMP 97.9
[2025-02-09 09:50] VITALS: PULSE 68
--- NOTE | 2025-02-11 09:55 | Discharge Summary ---
Date of Service February 11, 2025 Admission HPI Per Admitting Provider Current Estimate 02/12/25 LMP (Certain) 39w 0d LMP: 05/08/24 : 3 Full term: 2 Premature: 0 Total Number of Induced Abortions: 0 Total Number of Spontaneous Abortions: 0 Ectopics: 0 Multiple births: 0 Number of Living Children: 2 and Delivery Plans Previous x2; breech as of 01/22 C/S WITH TUBAL SCHEDULED FOR 02/05/[address] RODNEY AND DR[address] MCCLENDON ASSIST C/S WITH TUBAL RESCHEDULED FOR 02/08/[address] BUST[address]O AND DR[address] RUIZ ASSIST Anterior placenta appears abnl Area where placenta appears to breach into myometrium, with fluid collection behind - ?focal accreta MFM consult, (11/09/24 @ [facility] [place] MRI completed 5 - on chart and sent to Dr. Bustillo for review Patient's father-congenital heart defect Echo~22-24 weeks [facility] [place]- 10/20/24-->WNL Rubella equivocal * offer vaccine Admission Exam (Per Admitting) Constitutional WD/WN, vitals as above well developed and well nourished Respiratory normal respiratory effort, lungs clear to auscultation normal respiratory effort Cardiovascular RRR, no murmur, no edema Gastrointestinal (Abdomen) normal bowel sounds, soft, nontender, no hepatosplenomegaly Discharge Data Consultations 02/06/25 04:33 Consult Anesthesiology Stat Procedures Performed Operation Date: 02/06/25 05:10 Actual Procedures p Section in LD of a [facility]@0601(Bilateral) - Mau Rodney MD, [facility] [place] Hospital Course (1) care and examination: 35yo post-op day 3 s/p section Fells well today. Continue post- care Encourage ambulation and Pain controlled with Ibuprofen, Tylenol, and Oxycodone Vitals and Hgb stable Rubella equivocal. MMR vaccine discussed 02/08/25, pt prefers to wait until after d/c D/c home. Follow with OB provider in 6 weeks D/c instructions discussed Supervising Physician Co-Signing Physician Notes Resident Physician Supervision Note: I was present with Dr. Mancini during the history and exam. I discussed the case with the resident and agree with the findings and plan as documented in the note. Any exceptions or clarifications are listed here: stable doing well. eating, voiding, ambulating. good pain control. no bleeding issues. breast feeding. abd soft ff 2 down nt, incision c/d/i with steris. ext nt calves. pod #3s/p c/s ready for dc home, instructions reviewed. f/u 6 wk pp check. rh pos, mmr ordered, pt defers. checked on papdmp and no issues. Documented By: Denisse Bustillo MD, FACOG Coding Level of Care Code None Diagnoses care and examination Z39.2
== END 2025-02-09 12:15 | disposition home or self-care (01) | DRG 788 ==
LOC: OPB 04:21 → 4S1 04:25 → 4E2 09:10
DX: Z37.0 Single live birth; Z3A.39 39 weeks gestation of pregnancy; O34.211 Maternal care for low transverse scar from previous cesarean delivery